=== PATIENT | male | born 1955 | race Caucasian/White ===

== ENCOUNTER 2020-08-28 10:32 | Outpatient (CLI) | payer OTHER, MEDICARE, SELFPAY | END 2020-08-28 10:33 | disposition home or self-care (01) | LOC: ANHCOVIDVC 10:32 | PROVIDERS: PCP Family Medicine; Visit Provider Family Medicine | DX: Z23 Encounter for immunization (principal) | CPT/HCPCS: 0001A; 91300 ==

== ENCOUNTER 2020-09-18 10:25 | Outpatient (CLI) | payer OTHER, MEDICARE, SELFPAY | END 2020-09-18 10:26 | disposition home or self-care (01) | LOC: ANHCOVIDVC 10:25 | PROVIDERS: PCP Family Medicine | DX: Z23 Encounter for immunization (principal) | CPT/HCPCS: 0002A; 91300 ==

== ENCOUNTER 2021-04-05 01:53 | Day surgery (SDC) | payer OTHER, SELFPAY ==
[2021-03-26 09:45] VITALS: BMI 25.9
[2021-04-05 10:29] VITALS: BP 174/84; PULSE 54; RESP 18; TEMP 36.1; O2SAT 99
[2021-04-05] MEDS: LACTATED RINGERS 1,000 ML 150 ML IV CONT (10:43)
--- NOTE | 2021-04-05 11:00 | P.PNAN_ITS ---
Anes - Initial Pre Proc Eval Procedure: Operation Date: 04/05/21 11:30 Proposed Procedures p Screening Colonoscopy - Yves Nassar MD Date/Time: 04/05/21 11:00 Surgeon: Yves Nassar MD Pre Op Diagnosis: neoplasm screening Patient Data Age: 65 Gender: M Height: 1.7 m Weight: 75.4 kg Last Vital Signs Temp 97 F L 04/05/21 10:29 Pulse 54 L 04/05/21 10:29 Resp 18 04/05/21 10:29 BP 174/84 H 04/05/21 10:29 Pulse Ox 99 04/05/21 10:29 Allergies Allergy/AdvReac Type Severity Reaction Status Date / Time meperidine Allergy Intermediate Hypotension Verified 04/05/21 10:26 Home Medications Medication Instructions Recorded Confirmed Type amlodipine 10 mg tablet 10 mg PO DAILY 11/29/20 03/26/21 History bempedoic acid 180 mg-ezetimibe 10 1 tablet PO DAILY 11/29/20 03/26/21 History mg tablet carvedilol 25 mg tablet 25 mg PO Q12H 11/29/20 03/26/21 History olmesartan 40 1 tablet PO DAILY 11/29/20 03/26/21 History mg-hydrochlorothiazide 12.5 mg tablet aspirin [Aspir-81] 81 mg PO DAILY 03/26/21 03/26/21 History Patient hx anesthesia problems: none Family hx anesthesia problems: none Results Review: All pre-operative results and documents have been reviewed as part of the pre-operative evaluation. COUNT INCLUDES THE [facility] Past Medical History Medical History (Updated 11/29/20 @ 14:40 by Aiden Whittaker MD) BMI 27.0-27.9,adult Chronic low back pain without sciatica Colon cancer screening Coronary artery disease without angina pectoris Essential (primary) hypertension Gastro-esophageal reflux disease without esophagitis Insomnia Mixed hyperlipidemia Nocturia Seborrheic keratosis Tobacco use disorder, continuous Family History Family History (Updated 08/02/18 @ 09:04 by DOCTOR UNKNOWN) Father Hypertension Family history of congestive heart failure Mother Hypertension Social History Social History (Updated 11/29/20 @ 13:53 by Patrica Mena MA) Smoking packs per day: 1 Smoking cigarettes per day: 20.0 Years smoked: 40 Smoking pack-years: 40.00 Smoking status: Current every day smoker Tobacco type: cigarettes Second hand tobacco smoke exposure: No Alcohol intake: never Substance use: never Substance use type: does not use Living arrangements: with family Spiritual care concerns: No Anes - Eval Final PreProcedure Day of Procedure 04/05/21 11:00 Patient weight: overweight Heart: regular rate and rhythm Lungs: clear to auscultation Airway: Mallampati scale class II Neurological: alert and oriented Last oral intake: >/= 8 hours ASA classification: III Emergent: no Anesthetic plan: proceed Anesthesia type and monitoring: general GIVS and standard monitoring Results Review: All pre-operative results and documents have been reviewed as part of the pre-operative evaluation. Informed Consent: The patient's anesthetic plan and its attendant risks and benefits were discussed with the patient/family/POA. Questions were solicited and answers provided to the satisfaction of the patient/family/POA.
--- NOTE | 2021-04-05 11:04 | PM.HPGS ---
History of Present Illness History of Present Illness Consent: Risks, benefits, and alternatives have been discussed and questions answered. Patient agrees to proceed with procedure. Chief complaint: neoplasm screening Narrative: Dennys Parker is a 65 year old male with last colonoscopy ~ 10 years ago. Review of Systems Constitutional: Constitutional: Denies headache(s) and Denies weakness Eyes: Eyes: Denies blurry vision ENT: Reports Normal hearing present, Denies headache(s) and Denies neck pain Cardiovascular: Cardiovascular: Denies chest pain and Denies dyspnea Respiratory: Respiratory: Denies dyspnea Gastrointestinal: Gastrointestinal: Reports no additional gastrointestinal complaints Genitourinary: Genitourinary: Denies dysuria Musculoskeletal: Musculoskeletal: Denies neck pain Integumentary/Breasts: Skin/Breast: Denies dry skin Neurologic: Reports Normal hearing present, Denies headache(s) and Denies weakness Psychiatric: Psychiatric: Denies anxiety Endocrine: Endocrine: Denies change in body appearance Hematologic/Lymphatic: Hematologic/Lymphatic: Denies easy bleeding Allergic/Immunologic: Allergic/Immunologic: Denies urticaria PMFSH Past Medical History Medical History (Updated 11/29/20 @ 14:40 by Aiden Whittaker MD) BMI 27.0-27.9,adult Chronic low back pain without sciatica Colon cancer screening Coronary artery disease without angina pectoris Essential (primary) hypertension Gastro-esophageal reflux disease without esophagitis Insomnia Mixed hyperlipidemia Nocturia Seborrheic keratosis Tobacco use disorder, continuous Family History Family History (Updated 08/02/18 @ 09:04 by DOCTOR UNKNOWN) Father Hypertension Family history of congestive heart failure Mother Hypertension Social History Social History (Updated 11/29/20 @ 13:53 by Patrica Mena MA) Smoking packs per day: 1 Smoking cigarettes per day: 20.0 Years smoked: 40 Smoking pack-years: 40.00 Smoking status: Current every day smoker Tobacco type: cigarettes Second hand tobacco smoke exposure: No Alcohol intake: never Substance use: never Substance use type: does not use Living arrangements: with family Spiritual care concerns: No Meds Home Medications and Allergies Home Medications Medication Instructions Recorded Confirmed Type amlodipine 10 mg tablet 10 mg PO DAILY 11/29/20 03/26/21 History bempedoic acid 180 mg-ezetimibe 10 1 tablet PO DAILY 11/29/20 03/26/21 History mg tablet carvedilol 25 mg tablet 25 mg PO Q12H 11/29/20 03/26/21 History olmesartan 40 1 tablet PO DAILY 11/29/20 03/26/21 History mg-hydrochlorothiazide 12.5 mg tablet aspirin [Aspir-81] 81 mg PO DAILY 03/26/21 03/26/21 History Allergies Allergy/AdvReac Type Severity Reaction Status Date / Time meperidine Allergy Intermediate Hypotension Verified 04/05/21 10:26 Vital Signs Vital Signs - 24 hr 04/05/21 10:29 Temperature 97 F L Pulse Rate 54 L Respiratory Rate 18 Blood Pressure 174/84 H Pulse Oximetry 99 Exam Const: General: comfortable and no acute distress HENMT: General nose exam: Normal nares present Eyes: General: appearance normal, both eyes and all related structures Neck: Neck: no JVD Resp: Auscultation: clear to auscultation bilaterally Cardio: Rate: regular rate Rhythm: regular rhythm GI: Inspection: non-distended GI Palp: Yes Soft to palpation Skin: General skin exam: normal color Neuro: General: gait normal Speech: normal speech Extrem: General: normal to inspection Psych: Mental Status: mental status grossly normal Assessment and Plan Assessment and plan (1) Colon cancer screening: Code(s): Z12.11 - Encounter for screening for malignant neoplasm of colon Status: Acute Assessment and Plan: colonoscopy
[2021-04-05 11:18] VITALS: BP 97/50; PULSE 46; RESP 21; O2SAT 95
[2021-04-05 11:28] VITALS: BP 97/59; PULSE 46; RESP 20; O2SAT 93
[2021-04-05 11:38] VITALS: BP 115/62; PULSE 51; RESP 15; O2SAT 97
== END 2021-04-05 11:42 | disposition home or self-care (01) ==
PROVIDERS: PCP Family Medicine; Visit Provider Internal Medicine Gastroenterology
PROC: 0DJD8ZZ Inspection of Lower Intestinal Tract, Via Natural or Artificial Opening Endoscopic (ICD-10-PCS; CPT 45378; principal; 2021-04-05 11:30)
DX: Z12.11 Encounter for screening for malignant neoplasm of colon (principal); K57.30 Diverticulosis of large intestine without perforation or abscess without bleeding; K63.5 Polyp of colon; K64.8 Other hemorrhoids; K62.89 Other specified diseases of anus and rectum; I10 Essential (primary) hypertension; I25.10 Atherosclerotic heart disease of native coronary artery without angina pectoris; E78.2 Mixed hyperlipidemia; K21.9 Gastro-esophageal reflux disease without esophagitis; F17.210 Nicotine dependence, cigarettes, uncomplicated
CPT/HCPCS: 45380; 88305; J2704; J7120

== ENCOUNTER 2021-05-29 13:50 | Outpatient (CLI) | payer OTHER, SELFPAY ==
--- NOTE | ~2021-05-29 | CT_ITS ---
EXAMINATION: CT lung screening DATE: 05/29/2021 14:09 INDICATION: Nicotine dependence TECHNIQUE: Computed tomography (CT) of the chest was performed without intravenous contrast. The dose -length product was 102.34 mGy-cm. Automated exposure control and iterative reconstruction technique were employed. COMPARISON: None FINDINGS: Heart size is normal. No thoracic lymphadenopathy. No significant pleural or pericardial ef fusion. There are nonobstructing bilateral renal stones. Status post cholecystectomy. There is athero sclerosis of the aorta and coronary arteries. No pneumothorax. No endobronchial lesions. There is a c alcified granuloma of the right upper lobe. There is a 2 mm fissural nodule on the left. There is reinier gular atelectasis/scarring. There are multiple healed right rib fractures. IMPRESSION: 1. Lung-RADS category 2: Benign appearance or behavior. Continue annual screening with noncontrast lo w-dose chest CT in 12 months. Reviewed, dictated and finalized at location B. LASTER IMPRESSION: 1. Lung-RADS category 2: Benign appearance or behavior. Continue annual screeni ng with noncontrast low-dose chest CT in 12 months.
[2021-05-29 15:07] LABS: Alanine Aminotransferase 22 U/L (4-50); Albumin Level 3.9 g/dL (3.5-5.1); Alkaline Phosphatase 67 U/L (38-126); Anion Gap 7 mmol/L (8-16); Aspartate Amino Transferase 24 U/L (17-59); Bilirubin,Total 0.8 mg/dL (0.2-1.3); Blood Urea Nitrogen 10 mg/dL (9-20); Calcium 9.5 mg/dL (8.4-10.2); Carbon Dioxide 23 mmol/L (22-30); Chloride 102 mmol/L (98-107); Cholesterol 171 mg/dL (0-200); Estimated Glomerular Filt Rate > 60; Glucose 96 mg/dL (65-110); HDL Direct 54 mg/dL; Potassium 3.9 mmol/L (3.4-5.0); Sodium 132 mmol/L (137-145); Triglycerides 67 mg/dL (<150)
[2021-05-29 15:18] LABS: LDL Cholesterol Direct 104 mg/dL
[2021-05-29 15:33] LABS: Prostate Specific Antigen 2.1 ng/mL (< OR = 4.0)
[2021-05-29 15:58] LABS: Add Urine Microscopic? NO; Appearance Urine Clear (Clear); Bilirubin Urine Negative (Negative); Blood Urine Negative (Negative); Color Urine Straw (Yellow); Glucose Urine UA Negative (Negative); Ketones Urine Negative (Negative); Leukocyte Esterase Ur Negative LEU/UL (NEGATIVE); Nitrate Urine Negative (Negative); Protein Urine Negative (Negative); Urobilinogen Urine Negative mg/dL (<2.0)
[2021-05-29 16:07] LABS: Specific Grav Ur 1.004 (1.001-1.035)
== END 2021-05-29 13:51 | disposition home or self-care (01) ==
PROVIDERS: PCP Family Medicine; Visit Provider Nurse Practitioner Family
DX: E78.2 Mixed hyperlipidemia (principal); R53.1 Weakness; Z12.5 Encounter for screening for malignant neoplasm of prostate; I10 Essential (primary) hypertension; Z12.2 Encounter for screening for malignant neoplasm of respiratory organs; Z87.891 Personal history of nicotine dependence
CPT/HCPCS: 36415; 71271; 80048; 80061; 80076; 81003; 84153; 84443; G0103

== ENCOUNTER 2021-06-07 12:29 | Outpatient (CLI) | payer OTHER, SELFPAY ==
[2021-06-07 13:28] LABS: Anion Gap 6 mmol/L (8-16); Blood Urea Nitrogen 13 mg/dL (9-20); Calcium 9.4 mg/dL (8.4-10.2); Carbon Dioxide 27 mmol/L (22-30); Chloride 99 mmol/L (98-107); Estimated Glomerular Filt Rate > 60; Glucose 97 mg/dL (65-110); Potassium 4.1 mmol/L (3.4-5.0); Sodium 132 mmol/L (137-145)
== END 2021-06-07 12:30 | disposition home or self-care (01) ==
PROVIDERS: PCP Family Medicine; Visit Provider Nurse Practitioner Family
DX: E87.1 Hypo-osmolality and hyponatremia (principal)
CPT/HCPCS: 36415; 80048

== ENCOUNTER 2022-02-11 08:42 | Outpatient (CLI) | payer OTHER, SELFPAY ==
[2022-02-11 09:13] LABS: Anion Gap 6 mmol/L (8-16); Blood Urea Nitrogen 7 mg/dL (9-20); Calcium 9.3 mg/dL (8.4-10.2); Carbon Dioxide 30 mmol/L (22-30); Chloride 99 mmol/L (98-107); Cholesterol 220 mg/dL (0-200); Estimated Glomerular Filt Rate > 60; Glucose 98 mg/dL (65-110); HDL Direct 53 mg/dL; Potassium 3.9 mmol/L (3.4-5.0); Sodium 135 mmol/L (137-145); Triglycerides 93 mg/dL (<150)
[2022-02-11 09:24] LABS: LDL Cholesterol Direct 125 mg/dL
== END 2022-02-11 08:43 | disposition home or self-care (01) ==
PROVIDERS: PCP Family Medicine; Visit Provider Nurse Practitioner Family
DX: E78.2 Mixed hyperlipidemia (principal); I10 Essential (primary) hypertension
CPT/HCPCS: 36415; 80048; 80061

== ENCOUNTER 2022-07-01 08:12 | Outpatient (CLI) | payer OTHER, SELFPAY ==
[2022-07-01 09:18] LABS: Add Urine Microscopic? NO; Appearance Urine Clear (Clear); Bilirubin Urine Negative (Negative); Blood Urine Negative (Negative); Color Urine Yellow (Yellow); Glucose Urine UA Negative (Negative); Ketones Urine Negative (Negative); Leukocyte Esterase Ur Negative LEU/UL (NEGATIVE); Nitrate Urine Negative (Negative); Protein Urine Negative (Negative); Specific Grav Ur 1.015 (1.001-1.035); Urobilinogen Urine 0.2 mg/dL (<2.0)
[2022-07-01 09:29] LABS: Alanine Aminotransferase 19 U/L (6-50); Albumin Level 3.8 g/dL (3.5-5.1); Alkaline Phosphatase 58 U/L (38-126); Anion Gap 4 mmol/L (8-16); Aspartate Amino Transferase 21 U/L (17-59); Bilirubin,Total 0.5 mg/dL (0.2-1.3); Blood Urea Nitrogen 13 mg/dL (9-20); Calcium 9.1 mg/dL (8.4-10.2); Carbon Dioxide 28 mmol/L (22-30); Chloride 104 mmol/L (98-107); Cholesterol 141 mg/dL (0-200); Estimated Glomerular Filt Rate > 60; Glucose 90 mg/dL (65-110); HDL Direct 51 mg/dL; Potassium 3.3 mmol/L (3.4-5.0); Sodium 136 mmol/L (137-145); Triglycerides 85 mg/dL (<150)
[2022-07-01 09:40] LABS: LDL Cholesterol Direct 62 mg/dL
[2022-07-01 10:39] LABS: Folic Acid 9.9 ng/mL (2.76->20)
== END 2022-07-01 08:13 | disposition home or self-care (01) ==
PROVIDERS: PCP Nurse Practitioner Family; Visit Provider Nurse Practitioner Family
DX: E78.2 Mixed hyperlipidemia (principal); I10 Essential (primary) hypertension; R35.1 Nocturia
CPT/HCPCS: 36415; 80048; 80061; 80076; 81003; 82607; 82746; 84443